=== PATIENT | male | born 1960 | race Caucasian/White ===

== ENCOUNTER → 2016-08-05 | Outpatient (CLI) | payer BC ==
--- NOTE | 2016-08-05 09:05 | KCIC ---
Indication: Dizziness. Grayscale, color-flow and duplex Doppler evaluation of bilateral carotid systems was performed. There is very mild plaquing in the common carotid arteries and bifurcations extending into the proximal internal carotid arteries. Velocities are normal bilaterally. Peak systolic velocity in the right common carotid artery is 78 cm/s and left common carotid artery 55 cm/s. Peak ICA velocity on the right is 69 cm/s and on the left 77 cm/s. Both vertebral arteries show antegrade flow. The ICA to CCA ratio on the right is 0.9 and on the left 1.4. IMPRESSION: No evidence of a hemodynamically significant stenosis. Electronically signed by: Issac Charles MD (08/05/2016 9:01 AM)
== END | disposition home or self-care (01) ==
LOC: KCIC US 07:44
PROVIDERS: ATTEND Family Medicine
DX: R42 Dizziness and giddiness (principal)
CPT/HCPCS: 93880